=== PATIENT | female | born 1965 | race Caucasian/White ===

== ENCOUNTER 2020-05-14 18:15 | Inpatient (IN) | payer BC, SELFPAY ==
[2020-05-14] VITALS (10 sets, daily range): BP systolic 96–170; BP diastolic 59–93; PULSE 81–94; RESP 18–30; TEMP 36.6–37.2; O2SAT 86–97; BMI 47.4; BMI 48.8; BMI 48.9
--- NOTE | 2020-05-14 18:23 | EKG12_ITS ---
Test Reason : SOB Blood Pressure : / mmHG Vent. Rate : 088 BPM Atrial Rate : 086 BPM P-R Int : 000 ms QRS Dur : 098 ms QT Int : 384 ms P-R-T Axes : 000 -18 054 degrees QTc Int : 464 ms Atrial fibrillation Poor R wave progression Abnormal ECG Confirmed by YAO QUAN, FEDERICO ([id number]), marketing editor MEGAN BAILEY ([id number]) on 05/17/2020 11:09:25 AM Referred By: SHORTY Confirmed By:FEDERICO SAMAYOA MD
--- NOTE | 2020-05-14 18:34 | ED.VIS.GEN ---
History of Present Illness Chief Complaint: Shortness of Breath Narrative: This patient is a 54-year-old female who presents with shortness of breath on exertion. She became ill 3 weeks ago with a URI or sinusitis-like illness of congestion and rhinorrhea. She thought she had sinusitis and had a prescription for azithromycin called in for her. She has had some cough and shortness of breath with exertion. She actually states today is the best she is felt and her symptoms are nearly resolved today unless she walks. Her daughter is a respiratory therapist who checked on her and got an ambulatory pulse ox today and her pulse ox was 88 to 90% with ambulation. No fevers vomiting or diarrhea. The patient's did recently test positive for Covid. Patient denies history of chronic underlying lung disease such as asthma or COPD. Past Medical History - Allergies and Home Meds Allergies/Adverse Reactions: Allergies No Known Allergies Allergy (Verified 05/14/20 18:18) Primary Care Physician: Liang Jimenez MD [NON-STAFF] - Past Medical History: - - Diabetes, hypertension, hyperlipidemia Smoking Status: Never smoker Review of Systems All systems negative except as indicated General: Denies: Fever Eyes: Denies: Visual changes - bilaterally ENT: Reports: Rhinorrhea, - - Congestion, sinus pressure Respiratory: Reports: Dyspnea, Cough Gastrointestinal: Denies: Abdominal pain, Nausea, Vomiting, Diarrhea Musculoskeletal: Denies: Myalgias, Arthralgias Skin: Denies: Rash Neurological: Denies: Headache Allergy: Denies: Uticaria Physical Exam Vital Signs/Narrative: Vital Signs Temp Pulse Resp BP Pulse Ox 05/14/20 18:16 98 F 90 20 H 96/59 L 96 Inital Vital Signs reviewed: Yes General: Well nourished Head: Normocephalic Eyes: EOMI ENT: Moist mucous membranes Neck: Supple Cardiovascular: Regular rate, Regular rhythm Respiratory: No distress, CTA bilaterally Abdomen: Soft, Nontender Skin: Normal color Neurological: Alert Psychological: Normal affect Diagnostic/Tx/Re-eval Impressions Chest X-Ray 05/14/20 18:54 IMPRESSION: Lingular opacity suspicious for pneumonia. Consider typical and atypical etiologies. Mild right hilar adenopathy. CT of the chest is advised for further evaluation. Electronically Signed: Zoila Davenport MD at 19:26 EST Tel , Service support , 05/14/20 18:54 Chest 1 View (Portable) [RAD] Stat 05/14/20 19:30 CT Chest [Chest WITH Contrast] [CT] Stat 05/14/20 18:50 Mucosa - Nose SARS-CoV-2 Antigen (Rapid) - Final Laboratory Results 05/14/20 05/14/20 05/14/20 18:43 18:43 18:43 WBC 4.6 RBC 5.51 H Hgb 13.8 Hct 43.8 MCV 79.5 L MCH 25.0 L MCHC 31.5 L RDW Std Deviation 43.3 RDW Coeff of Nikhil 15.1 H Plt Count 194 MPV 10.4 Immature Gran % (Auto) 0.400 Neut % (Auto) 80.5 H Lymph % (Auto) 12.8 L Oliver % (Auto) 6.1 Eos % (Auto) 0.0 Baso % (Auto) 0.2 Absolute Neuts (auto) 3.7 Absolute Lymphs (auto) 0.59 L Nucleated RBC % 0 Differential Comment SCANNED Platelet Estimate ADEQUATE Microcytosis 1+ Sodium 139 Potassium 3.9 Chloride 105 Carbon Dioxide 29.0 Anion Gap 5 BUN 12 Creatinine 1.15 H Estim Creat Clear Calc 61.05 Est GFR (MDRD) Af Amer 63 Est GFR (MDRD) Non-Af 52 L BUN/Creatinine Ratio 10.4 Glucose 119 H Lactic Acid 1.7 Calcium 8.5 Total Bilirubin 0.70 AST 34 ALT 28 Alkaline Phosphatase 66 Troponin I B-Natriuretic Peptide Total Protein 8.2 Albumin 3.1 L Globulin 5.1 H Albumin/Globulin Ratio 0.6 L 05/14/20 05/14/20 18:43 18:43 WBC RBC Hgb Hct MCV MCH MCHC RDW Std Deviation RDW Coeff of Nikhil Plt Count MPV Immature Gran % (Auto) Neut % (Auto) Lymph % (Auto) Oliver % (Auto) Eos % (Auto) Baso % (Auto) Absolute Neuts (auto) Absolute Lymphs (auto) Nucleated RBC % Differential Comment Platelet Estimate Microcytosis Sodium Potassium Chloride Carbon Dioxide Anion Gap BUN Creatinine Estim Creat Clear Calc Est GFR (MDRD) Af Amer Est GFR (MDRD) Non-Af BUN/Creatinine Ratio Glucose Lactic Acid Calcium Total Bilirubin AST ALT Alkaline Phosphatase Troponin I < 0.015 B-Natriuretic Peptide 23.2 Total Protein Albumin Globulin Albumin/Globulin Ratio - Medical Decision Making Labs as above essentially unremarkable. Testing for COVID-19 is negative. EKG shows atrial fibrillation at a rate of 88. Patient has no known prior history of atrial fibrillation. Chest x-ray shows lingular pneumonia and possibly hilar adenopathy. Radiology recommended CT of the chest. CT of the chest with IV contrast was obtained and is pending at the time of this dictation. Patient the time of my initial history had a pulse ox of 97%. However she desaturated to 87% on room air at rest. She was placed on oxygen via nasal cannula. On my review of the CT imaging there is concern for right-sided pulmonary embolism and patient has bilateral infiltrates very concerning for Covid despite a negative antigen test. We have obtained a Covid PCR which is pending at the time of this dictation. I did speak to the hospitalist who agrees to admit. We will treat with Lovenox for now. Patient was also given IV Levaquin for pneumonia. If she is rate controlled in regards to her atrial fibrillation. ED Disposition - Plan for ED Patient: Disposition: Acute Care [facility] Diagnosis: COVID-19, Atrial fibrillation, Pneumonia, Pulmonary embolism Referrals: Liang Jimenez MD [NON-STAFF] -
--- NOTE | 2020-05-14 18:54 | RAD_ITS ---
STUDY: X-RAY CHEST REASON FOR EXAM: Female, 54 years old. SOB, FAMILY IS COVID + TECHNIQUE: Single AP portable view of the chest. COMPARISON: None. FINDINGS: No pleural effusion. Hazy opacity in the lingula, suspicious for pneumonia. Mild prominence of the right lung hilum. Question adenopathy. Normal size heart. Normal visualized pulmonary arteries. Normal visualized aortic arch and descending thoracic aorta. Normal visualized thoracic spine. Normal visualized ribs, clavicles, and shoulders. There is no demonstrated abnormality of the visualized soft tissue structures of the upper abdomen. RAD/Chest 1 View (Portable) IMPRESSION: Lingular opacity suspicious for pneumonia. Consider typical and atypical etiologies. Mild right hilar adenopathy. CT of the chest is advised for further evaluation. Electronically Signed: Zoila Davenport MD at 19:26 EST Tel , Service support ,
[2020-05-14 19:00] LABS: Absolute Lymphocyte Count 0.59 X10^3/uL (0.83-4.51); Absolute Neutrophil Count 3.7 X10^3/uL (2.0-7.7); Basophil# 0.01 X10^3/uL; Basophil% 0.2 % (0-1); Hematocrit 43.8 % (37-47); Hemoglobin 13.8 g/dL (12.0-15.0); Lymphocyte # 0.59 X10^3/ul (4.0); Lymphocyte % 12.8 % (19-41); Mean Corp Hgb Conc 31.5 g/dL (32-36); Mean Corpuscular Volume 79.5 fL (81-99); Mean Platelet Vol. 10.4 fl (6.2-12.0); Monocyte# 0.28 X10^3/uL; Monocyte% 6.1 % (0-10); NRBC Flagged by Analyzer 0 % (0-5); Neutrophil % 80.5 % (47-70); POSITIVE DIFFERENTIAL YES; Platelet Count 194 K/mm3 (150-450); RBC Distribution Width CV 15.1 % (11.6-14.6); RBC Distribution Width SD 43.3 fl (35.1-43.9); Red Blood Count 5.51 M/mm3 (4.2-5.4); White Blood Count 4.6 K/mm3 (4.4-11.0)
[2020-05-14 19:04] LABS: Differential Indicated SCAN CRITERIA MET
[2020-05-14 19:30] LABS: ALB/GLOB Ratio 0.6 RATIO (0.9-2.4); AST(SGOT) 34 U/L (15-37); Alanine Aminotransfer ALT/SGPT 28 U/L (13-56); Albumin, Serum 3.1 g/dL (3.2-5.0); Alkaline Phosphatase 66 U/L (45-117); Anion Gap 5 (5-15); BUN 12 mg/dL (7-18); BUN/Creat Ratio 10.4 RATIO (10-20); Calcium,Total 8.5 mg/dL (8.5-10.1); Chloride 105 mmol/L (98-107); Creatinine, Serum 1.15 mg/dL (0.55-1.02); EST Glomerular Filtration Rate 52 mL/min (>60); Est Glom Filt Rate - Afr Amer 63 mL/min (>60); Estimated Creatinine Clearance 61.05 ml/min; Globulin 5.1 g/dL (2.2-4.2); Glucose 119 mg/dL (74-106); Potassium 3.9 mmol/L (3.5-5.1); Protein, Total 8.2 g/dL (6.4-8.2); Sodium Level 139 mmol/L (136-145)
--- NOTE | 2020-05-14 19:30 | CT_ITS ---
We are attempting to reach an attending provider to discuss findings. An addendum with communication details will be sent when the communication is complete. STUDY: CT CHEST WITH CONTRAST REASON FOR EXAM: Female, 54 years old. SOB/ABN CXR RADIATION DOSAGE (If Supplied By Facility): CTDIvol = ( 16.72 ) mGy, DLP = ( 766.92 ) mGycm TECHNIQUE: Transaxial imaging was performed following intravenous administration of IV 100mL Isovue-370. Individualized dose optimization techniques were used for this CT. COMPARISON: None. FINDINGS: The heart and pericardium are normal. The aorta is normal in caliber. No aneurysm or dissection. Subsegmental emboli in the right middle and lower lobe. Subsegmental emboli in the right upper lobe. There is moderate mediastinal and bilateral hilar adenopathy, greater than expected for reactive change. Largest right paratracheal node measures 2 x 2.6 cm. Confluent right hilar adenopathy measures up to 4.4 x 2.4 cm. Left hilar adenopathy measures up to 1.6 cm in short axis. Mild prevascular adenopathy. There is no pleural effusion. Moderate groundglass opacity in the lingula and left lower lobe. Mild groundglass opacity in the right upper and right lower lobes. Distribution is predominantly peripheral on the right. Diffuse fatty infiltration of the liver. There is no osseous abnormality. CT/Chest WITH Contrast IMPRESSION: 1. Mild pulmonary emboli, greatest in the right middle and lower lobes. 2. Bilateral groundglass opacities consistent with pneumonia, including possible Covid pneumonia. 3. Moderate mediastinal and bilateral hilar adenopathy, not typical for infectious/reactive adenopathy. Consider underlying malignancy/lymphoma. 4. Hepatic steatosis. Electronically Signed: Zoila Davenport MD at 20:57 EST Tel , Service support ,
[2020-05-14 19:31] LABS: Lactic Acid 1.7 mmol/L (0.4-1.9)
[2020-05-14] MEDS: LORazepam 2 MG/ML Syringe 0.5 MG IV (19:44)
[2020-05-14 19:51] LABS: Differential Comment SCANNED; Platelet Estimate ADEQUATE (ADEQ)
[2020-05-14 19:52] LABS: Microcytosis 1+
[2020-05-14 19:54] LABS: BNP,B-Type NATRIURETIC PEPTIDE 23.2 pg/mL (0-100)
[2020-05-14] MEDS: levoFLOXacin IV 750 MG/150 ML BAG 100 MG IV (20:26)
[2020-05-14] MEDS: Enoxaparin 150 MG/ML Syringe SC (20:55)
--- NOTE | 2020-05-14 21:00 | PCM.HP.STD ---
Problem List (1) COVID-19 Status: Suspected (2) Atrial fibrillation Status: Acute (3) Pneumonia Status: Acute (4) Pulmonary embolism Status: Acute (5) Sinusitis, acute Status: Acute Qualifiers: Sinusitis location: pansinusitis Recurrence: non-recurrent Qualified Code(s): J01.40 - Acute pansinusitis, unspecified (6) Acute hypoxemic respiratory failure Status: Acute History of Present Illness Date of Admission: 05/14/20 Chief Complaint: Shortness of breath. The patient is a 54 year old F with a significant history of hypertension and diabetes mellitus who presents to the emergency department with 2-week history of shortness of breath. Her shortness of breath is at rest and it increases markedly with exertion. In the past 3 weeks patient had had runny nose and a productive cough. Her cough has been productive for clear to greenish sputum. Occasional patient had a pinkish sputum that she thinks contains blood. Her cough is getting more dry. Because Her symptoms persisted patient was diagnosed with sinusitis and started on Z-Alejandro. The last dose of Z-Alejandro is supposed to be taken on 05/15/2020. The day before presentation a Covid test was done on patient's . The Covid test returned positive. Patient's daughter who is a respiratory therapist at our hospital check patient's pulse ox and it was between 86 to 91% depending on whether patient is at rest or ambulating. At emergency department her oxygen saturation was also found to be low. T Past Medical History Medical History: Medical History (Last Reviewed 06/29/19 @ 16:14 by Shikha Castro) Hypertension I10 Allergies No Known Allergies Allergy (Verified 05/14/20 18:18) Home Medications: Ambulatory Orders Medication Instructions Recorded Albuterol Sulfate [Albuterol 1 puff INHALATION PRN PRN 05/14/20 Sulfate HFA] Amlodipine [Norvasc] 5 mg PO DAILY 05/14/20 Hydrochlorothiazide [Hctz] 25 mg PO DAILY 05/14/20 Zithromax Z-Alejandro 05/14/20 metFORMIN HCl [Glucophage] 500 mg PO BIDCM 05/14/20 Surgical History: tonsillectomy Smoking Status: Never smoker Alcohol: Rare - *Family History Maternal History Items: Heart Disease Paternal History Items: Cancer - Lymphoma Review of Systems Constitutional: Reports: Anorexia, Malaise, Fatigue. Denies: Chills, Fever, Weight Change HEENT: Denies: Head Aches, Sinus Congestion, Sinus Drainage Cardiovascular: Denies: Chest Pain, Palpitations Respiratory: Reports: Cough, Shortness of breath at rest, Sputum production Gastrointestinal: Denies: Abdominal Pain, Nausea, Vomiting Genitourinary: Denies: Dysuria Musculoskeletal: Denies: Joint Pain, Joint Tenderness Skin: Denies: Rash, Wounds Neurological: Denies: Numbness, Tingling, Focal weakness Psychiatric: Denies: Anxiety, Depression, Homicidal Ideations, Suicidal Ideations Hematologic/ Lymphatic: Denies: Easy Bruising, Easy Bleeding VTE Information - Inpt Only VTE Present on Admission: Yes VTE Mechan Device Prophylaxis: None VTE Pharm Prophylaxis ordered?: No Patient Problems: Active and Suspected Problems (Last Reviewed 06/29/19 @ 16:14 by Shikha Castro) COVID-19 (Suspected) Atrial fibrillation (Acute) Pneumonia (Acute) Pulmonary embolism (Acute) Acute hypoxemic respiratory failure (Acute) Sinusitis, acute (Acute) - Physical Exam Vitals/I&O's: Vital Signs Temp Pulse Resp BP Pulse Ox 98.9 F 94 30 H 155/93 H 95 05/14/20 20:27 05/14/20 20:27 05/14/20 20:27 05/14/20 20:27 05/14/20 20:27 Oxygen Flow Rate (L/min) 2 Oxygen Delivery Method Nasal Cannula Weight: 154.221 kg Body Mass Index (BMI) 47.4 General: Alert, Oriented x3, Cooperative HEENT: Atraumatic, PERRLA, EOMI, Normocephalic Neck: Supple, No JVD, Negative Carotid Bruits Lungs: No wheeze, Rales Cardiovascular: Normal S1, Normal S2, No murmurs, Irregular Rate Abdomen: Bowel Sounds Present, Soft, Non Tender Extremities: No edema, Capillary Refill Less than 3 Seconds Skin: No rashes, No breakdown Musculoskeletal: No Tenderness to Palpation of Joints or Extremities Neurological: Cranial nerves II-XII grossly intact Psych/Mental Status: Normal Affect, Appropriate Microbiology Past 72 Hours 05/14/20 18:50 Mucosa - Nose SARS-CoV-2 Antigen (Rapid) - Final Laboratory Results 05/14/20 18:43: WBC 4.6, RBC 5.51 H, Hgb 13.8, Hct 43.8, MCV 79.5 L, MCH 25.0 L, MCHC 31.5 L, RDW Std Deviation 43.3, RDW Coeff of Nikhil 15.1 H, Plt Count 194, MPV 10.4, Immature Gran % (Auto) 0.400, Neut % (Auto) 80.5 H, Lymph % (Auto) 12.8 L, Hubbard % (Auto) 6.1, Eos % (Auto) 0.0, Baso % (Auto) 0.2, Absolute Neuts (auto) 3.7, Absolute Lymphs (auto) 0.59 L, Nucleated RBC % 0, Differential Comment SCANNED, Platelet Estimate ADEQUATE, Microcytosis 1+ 05/14/20 18:43: Sodium 139, Potassium 3.9, Chloride 105, Carbon Dioxide 29.0, Anion Gap 5, BUN 12, Creatinine 1.15 H, Estim Creat Clear Calc 61.05, Est GFR (MDRD) Af Amer 63, Est GFR (MDRD) Non-Af 52 L, BUN/Creatinine Ratio 10.4, Glucose 119 H, Calcium 8.5, Total Bilirubin 0.70, AST 34, ALT 28, Alkaline Phosphatase 66, Total Protein 8.2, Albumin 3.1 L, Globulin 5.1 H, Albumin/Globulin Ratio 0.6 L 05/14/20 18:43: Lactic Acid 1.7 05/14/20 18:43: Troponin I < 0.015 05/14/20 18:43: B-Natriuretic Peptide 23.2 05/14/20 20:35: COVID-19 (MAREK) Pending Assessment/Plan All Active Problems (Last Reviewed 06/29/19 @ 16:14 by Shikha Castro) Atrial fibrillation (Acute) Pneumonia (Acute) Pulmonary embolism (Acute) Acute hypoxemic respiratory failure (Acute) Sinusitis, acute (Acute) The patient is a 54 year old F with a significant history of hypertension and diabetes mellitus who presents to the emergency department with 2-week history of shortness of breath and hypoxia and found to have atrial fibrillation; PE and bilateral opacities on chest imaging as well as mediastinal and hilar adenopathy. Acute hypoxemic respiratory insufficiency Likely etiology of pulmonary embolism and COVID-19. Other differential diagnosis include viral pneumonia; and atypical pneumonia. Reportedly her oxygen saturation was 86% on room air at the emergency department. Patient required nasal cannula oxygen at emergency department. Oxygen supplementation continued. Coronavirus antigen test was negative. Covid PCR also returned to be negative. Impression of chest x-ray by radiologist: Lingular opacity suspicious for pneumonia. Consider typical and atypical etiologies. Mild right hilar adenopathy. Actual chest x-ray image was independently interpreted. I agree radiologist interpretation. Impression of chest CT by radiologist: Mild pulmonary emboli, greatest in the right middle and lower lobes. Bilateral groundglass opacity consistent with pneumonia, including possible Covid pneumonia. Moderate mediastinal and bilateral hilar adenopathy, not typical for infectious/reactive adenopathy. Consider underlying malignancy/lymphoma. Hepatic steatosis. Although both antigen and PCR for Covid was negative patient is a high risk of SARS COV -2 we will treat with dexamethasone and remdesivir. We will consult ID and pulmonary medicine. Her liver enzyme is normal. Discussed adverse effects of medication with patient. Procalcitonin; ferritin; triglycerides; strep pneumonia antigen; Legionella urinary antigen; respiratory pathogen panel ordered. Received Levaquin IV at emergency department. Will start patient on ceftriaxone IV. Levaquin IV ordered. Tylenol as needed for fever. Patient currently has no fever. Mucinex ordered Pulmonary embolism Placed on therapeutic dose of Lovenox Echocardiogram ordered. Atrial fibrillation. Patient with A. fib and normal ventricular response. Placed on telemetry. Echocardiogram ordered. Anticoagulation as above Mediastinal and bilateral hilar adenopathy Per CT; and per radiologist, not typical for infectious/reactive adenopathy Pulmonary medicine consult. Acute sinusitis Flonase ordered. Received Levaquin in the emergency department. Was on home Z-Alejandro with last dose on 05/15/2020. Antibiotics as above. Hypertension Blood pressure is not within goal Amlodipine and hydrochlorothiazide continued Trend blood pressure and adjust blood pressure medications. Diabetes mellitus Patient with mild hyperglycemia on presentation Metformin held. Anticipate with Decadron blood glucose before elevated. Accu-Chek QA CHS with correction scale insulin ordered. Morbid obesity BMI: 47.4. Complicates care. Lifestyle modification recommended. DVT prophylaxis: Not indicated since patient has acute PE. Lovenox as above. Inpatient E&M: 21599 Init Hosp L3
--- NOTE | 2020-05-14 21:58 | ECHOCS_ITS ---
Reason For Study: Afib/Flutter Procedure This was a 2D Doppler, Color Flow transthoracic echocardiogram. Technically difficult study due to patient body habitus. Patient refused to lay supine or on her left side. When told it would affect image quality she said ok. Patient was then scanned sitting upright in the bed. Contrast injection given. The study was technically difficult. Contrast injection was performed. Exam performed portable in patient room. The exam was abbreviated due to the COVID 19 protocol. Left Ventricle Mild concentric left ventricular hypertrophy. Based upon the 2D echocardiographic and contrast enhanced images obtained there appears to be grossly normal left ventricular size, wall motion, and systolic function. The estimated ejection fraction is 70 %. Unable to assess diastolic dysfunction. Right Ventricle Based upon the 2D echocardiographic and contrast enhanced images obtained there appears to be grossly normal right ventricular size and systolic function. Atria Normal left atrium. Normal right atrium. No doppler evidence for ASD. Mitral Valve There is no mitral annular calcification. Normal mitral valve. Tricuspid Valve The tricuspid valve is not well visualized. Aortic Valve Trisinus/trileaflet aortic valve. Normal aortic valve. Pulmonic Valve The pulmonic valve is not well visualized. Great Vessels The aortic root is not well visualized. Pericardium/Pleural No pericardial effusion. Medication Diluted definity 3ml given slow IV push to enhance endocardial definition. MMode/2D Measurements & Calculations LVIDd: 4.3 cm IVSd: 1.4 cm LVIDs: 2.7 cm LVPWd: 1.3 cm FS: 37.3 % Interpretation Summary The study was technically difficult. Contrast injection was performed. Based upon the 2D echocardiographic and contrast enhanced images obtained there appears to be grossly normal left ventricular size, wall motion, and systolic function. The estimated ejection fraction is 70 %. Mild concentric left ventricular hypertrophy. Unable to assess diastolic dysfunction. Ordering Physician: Deshawn Brady Referring Physician: Sanket Gay Performed By: Brodwolf, Sharath, RCS
--- NOTE | 2020-05-14 22:00 | PCS.PANDOC ---
PANDEMIC DOCUMENTATION INITIATED: Date: 05/14/20 Time: 22:00
--- NOTE | 2020-05-14 22:38 | NURSING ---
Update called to Ana Laura Carey (pt.'s daughter) at this time.
[2020-05-14 23:21] LABS: Procalcitonin 0.11 ng/mL (0.00-0.09)
[2020-05-15] VITALS (11 sets, daily range): BP systolic 140–146; BP diastolic 79–87; PULSE 58–85; RESP 16–32; TEMP 36.5–36.6; O2SAT 94–95
[2020-05-15] MEDS: guaiFENesin 1,200 MG Tablet 1200 MG PO ×3 (00:26→21:11)
[2020-05-15] MEDS: hydroCHLOROthiazide 25 MG Tablet PO ×3 (00:26→21:11)
[2020-05-15 00:27] LABS: Ferritin 234 ng/mL (8-252); Triglycerides 158 mg/dL
[2020-05-15] MEDS: Fluticasone 0.05% 1 SPRAY NASAL.SRY NASAL ×3 (00:27→21:07)
[2020-05-15] MEDS: dexAMETHasone 4 MG Tablet 6 MG PO ×2 (00:28→08:51)
[2020-05-15 01:11] LABS: Bedside Glucose 117 mg/dL (70-110)
[2020-05-15 06:04] LABS: Absolute Neutrophil Count 3.6 X10^3/uL (2.0-7.7); Basophil# 0.01 X10^3/uL; Basophil% 0.2 % (0-1); Hematocrit 44.6 % (37-47); Hemoglobin 13.8 g/dL (12.0-15.0); Lymphocyte % 11.7 % (19-41); Mean Corp Hgb Conc 30.9 g/dL (32-36); Mean Corpuscular Hgb 24.3 pg (27.0-32.0); Mean Corpuscular Volume 78.5 fL (81-99); Mean Platelet Vol. 10.4 fl (6.2-12.0); Monocyte# 0.16 X10^3/uL; Monocyte% 3.7 % (0-10); NRBC Flagged by Analyzer 0 % (0-5); Neutrophil % 84.2 % (47-70); POSITIVE DIFFERENTIAL YES; Platelet Count 190 K/mm3 (150-450); RBC Distribution Width CV 14.9 % (11.6-14.6); Red Blood Count 5.68 M/mm3 (4.2-5.4); White Blood Count 4.3 K/mm3 (4.4-11.0)
[2020-05-15 06:11] LABS: Differential Indicated SCAN CRITERIA MET
[2020-05-15 06:42] LABS: ALB/GLOB Ratio 0.6 RATIO (0.9-2.4); AST(SGOT) 25 U/L (15-37); Alanine Aminotransfer ALT/SGPT 24 U/L (13-56); Albumin, Serum 3.1 g/dL (3.2-5.0); Alkaline Phosphatase 68 U/L (45-117); Anion Gap 9 (5-15); BUN 10 mg/dL (7-18); BUN/Creat Ratio 8.6 RATIO (10-20); Calcium,Total 8.9 mg/dL (8.5-10.1); Chloride 102 mmol/L (98-107); Creatinine, Serum 1.16 mg/dL (0.55-1.02); EST Glomerular Filtration Rate 51 mL/min (>60); Est Glom Filt Rate - Afr Amer 62 mL/min (>60); Estimated Creatinine Clearance 59.81 ml/min; Globulin 5.4 g/dL (2.2-4.2); Glucose 143 mg/dL (74-106); Potassium 3.7 mmol/L (3.5-5.1); Protein, Total 8.5 g/dL (6.4-8.2); Sodium Level 135 mmol/L (136-145); Thyroid Stim Hormone (TSH) 2.28 uIU/mL (0.358-3.74)
[2020-05-15] MEDS: Insulin Lispro 100 UNIT/ML INSULN.PEN SC ×3 (06:51→21:21)
[2020-05-15 07:16] LABS: Bedside Glucose 159 mg/dL (70-110)
[2020-05-15] MEDS: amLODIPine 5 MG Tablet PO (08:52)
[2020-05-15] MEDS: Enoxaparin 150 MG/ML Syringe SC ×2 (09:00→21:10)
--- NOTE | 2020-05-15 09:30 | CASEMGMT ---
NAMRATA PENA assessment: Phone interview with patient for initial transition planning/care coordination assessment. RN JEAN introduced self and role at [facility], pt voices understanding and consents to assessment at this time. Pt is A/Ox4 at this time and answers all questions appropriately at this time. Pt is currently on 4L nc at this time. Pt is not SOB with conversation and is able to speak in full sentences. Care providers, pharmacy, and demographics verified at this time. Presentation: Pt w/ SOB. Family is COVID +, pt states sick for 3 weeks. RA sat is 96% but drops w/ ambulation. Admitting dx: SARS COVID, PE, Afib PCP: Sanket Gay Specialists: Pt states no current specialists. Preferred Pharmacy: [facility] Insurance: [employer] Prescription Benefit: [employer] Living Will/HPOA: Pt states has LW/HPOA and is aware that they are not on file at [facility] at this time. Pt states her and daughter are HPOA's. LNOK: Anmol Preston, ; Yasmin Carey, daughter Living Arrangements: Pt states lives with in 1 story home and states no concerns at home at this time. Pt states is independent with ADL's. Transportation: Pt states drives self and states no transportation concerns at this time. DME/HHC: Pt states no current DME or need for any at this time. Pt states no preference for DME if qualifies at discharge. Pt states no hx of HHC or SNF in the past. Pt states no concerns with going home at time of discharge. 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 Pt states does not smoke cigarettes and does drink ETOH occasionally. Pt states no further concerns/needs at this time. CM to follow for anti-coagulant, home oxygen qualification, and any further discharge planning/needs. Advised pt to ask for CM if any further questions/concerns/needs arise, voices understanding. Pt Goal: Home Plan: Home, pending home oxygen qualification. [place] NAMRATA PENA
[2020-05-15 09:59] LABS: M R Staph aureus DNA By PCR Negative (Negative); Probe Check PASS; Specimen Processing Control PASS
[2020-05-15 12:55] LABS: Bedside Glucose 149 mg/dL (70-110)
--- NOTE | 2020-05-15 14:47 | PN_ITS ---
Patient Problems: Active and Suspected Problems (Last Reviewed 06/29/19 @ 16:14 by Shikha Castro) COVID-19 (Suspected) Atrial fibrillation (Acute) Pneumonia (Acute) Pulmonary embolism (Acute) Acute hypoxemic respiratory failure (Acute) Sinusitis, acute (Acute) Subjective: Feeling better today. Per daughter has been having SOB for a while even before respiratory sx started. Vitals/I&O's: Vital Signs Temp Pulse Resp BP Pulse Ox 97.8 F 85 18 146/82 H 94 05/15/20 08:46 05/15/20 08:46 05/15/20 08:46 05/15/20 08:46 05/15/20 08:46 Oxygen Flow Rate (L/min) 4 Oxygen Delivery Method Nasal Cannula Weight: 158.893 kg Body Mass Index (BMI) 48.8 Intake and Output for Last 24 Hours 05/13/20 05/14/20 05/15/20 23:59 23:59 23:59 Intake Total 150 / 150 522 / 522 Output Total 600 / 600 Balance 150 / 150 -78 / -78 General: Alert, Oriented x3, Cooperative, No apparent distress, Well developed, Well nourished, - - MO WF sitting up in a chair working on her computer HEENT: Atraumatic, PERRLA, EOMI, Normocephalic, Sluggish Pupils Oral: Moist Mucosa, No Gingival or Mucosal Lesions/ Ulcerations, - - Mallampati 3-4 Neck: Supple, No JVD, Negative Hepatojugular Reflux, Trachea Midline, Thyroid Normal Size and Texture Lungs: No wheeze, No rales, Diminished Cardiovascular: Regular rate, Regular Rhythm, Normal S1, Normal S2, No murmurs, No Ectopic Activity, No rub noted Abdomen: Bowel Sounds Present, Soft, Non Tender, Non-Distended, No Hepato- splenomegaly, Obese Extremities: No clubbing, No cyanosis, Edema - trace B LE-chronic per pt Skin: No rashes, No breakdown Musculoskeletal: No Tenderness to Palpation of Joints or Extremities, No Muscle Wasting Lymphatic: No Cervical, Supraclavicular, or Inguinal Adenopathy Neurological: Cranial nerves II-XII grossly intact, Neuro grossly intact, Muscle tone normal, Coordination normal Psych/Mental Status: Normal Affect, Appropriate, - - very pleasant Microbiology Past 72 Hours 05/15/20 05:45 Mucosa - Nasopharyngeal Respiratory Panel (PCR) - Final 05/15/20 01:45 Urine, Clean Catch Legionella Antigen - Final 05/15/20 01:45 Urine, Clean Catch Streptococcus pneumoniae Antigen (M - Final 05/14/20 18:50 Mucosa - Nose SARS-CoV-2 Antigen (Rapid) - Final Laboratory Results 05/14/20 18:43: WBC 4.6, RBC 5.51 H, Hgb 13.8, Hct 43.8, MCV 79.5 L, MCH 25.0 L, MCHC 31.5 L, RDW Std Deviation 43.3, RDW Coeff of Nikhil 15.1 H, Plt Count 194, MPV 10.4, Immature Gran % (Auto) 0.400, Neut % (Auto) 80.5 H, Lymph % (Auto) 12.8 L, [place] % (Auto) 6.1, Eos % (Auto) 0.0, Baso % (Auto) 0.2, Absolute Neuts (auto) 3.7, Absolute Lymphs (auto) 0.59 L, Nucleated RBC % 0, Differential Comment SCANNED, Platelet Estimate ADEQUATE, Microcytosis 1+ 05/14/20 18:43: Sodium 139, Potassium 3.9, Chloride 105, Carbon Dioxide 29.0, Anion Gap 5, BUN 12, Creatinine 1.15 H, Estim Creat Clear Calc 61.05, Est GFR (MDRD) Af Amer 63, Est GFR (MDRD) Non-Af 52 L, BUN/Creatinine Ratio 10.4, Glucose 119 H, Calcium 8.5, Total Bilirubin 0.70, AST 34, ALT 28, Alkaline Phosphatase 66, Total Protein 8.2, Albumin 3.1 L, Globulin 5.1 H, Albumin/Globulin Ratio 0.6 L 05/14/20 18:43: Lactic Acid 1.7 05/14/20 18:43: Troponin I < 0.015 05/14/20 18:43: B-Natriuretic Peptide 23.2 05/14/20 18:43: Ferritin 234, Triglycerides 158 05/14/20 20:35: COVID-19 ([facility]) Not Detected 05/14/20 22:38: Procalcitonin 0.11 H 05/15/20 00:44: POC Glucose 117 H 05/15/20 05:50: WBC 4.3 L, RBC 5.68 H, Hgb 13.8, Hct 44.6, MCV 78.5 L, MCH 24.3 L, MCHC 30.9 L, RDW Std Deviation 43.0, RDW Coeff of Nikhil 14.9 H, Plt Count 190, MPV 10.4, Immature Gran % (Auto) 0.200, Neut % (Auto) 84.2 H, Lymph % (Auto) 11.7 L, [place] % (Auto) 3.7, Eos % (Auto) 0.0, Baso % (Auto) 0.2, Absolute Neuts (auto) 3.6, Absolute Lymphs (auto) 0.50 L, Nucleated RBC % 0, Diff Path Review September05/15/20 05:50: Sodium 135 L, Potassium 3.7, Chloride 102, Carbon Dioxide 24.0, Anion Gap 9, BUN 10, Creatinine 1.16 H, Estim Creat Clear Calc 59.81, Est GFR (M DRD) Af Amer 62, Est GFR (MDRD) Non-Af 51 L, BUN/Creatinine Ratio 8.6 L, Glucose 143 H, Calcium 8.9, Total Bilirubin 0.50, AST 25, ALT 24, Alkaline Phosphatase 68, Total Protein 8.5 H, Albumin 3.1 L, Globulin 5.4 H, Albumin/Globulin Ratio 0.6 L, TSH 2.28 05/15/20 06:43: POC Glucose 159 H 05/15/20 06:50: MRSA (PCR) Negative 05/15/20 11:37: POC Glucose 149 H Current Medications Acetaminophen (Acetaminophen 325 Mg Tablet) 650 mg PO Q6H PRN PRN PRN Reason: Pain Score 1-10/Temp > 100.7 F Albuterol Sulfate (Albuterol Ih 8.5 Gm (Proair) Inhaler (200 Puffs)) 2 puff INHALATION Q4H PRN PRN PRN Reason: SOB/WHEEZING Last Admin: 05/15/20 00:26 Dose: 2 puff Documented by: Amlodipine Besylate (Amlodipine 5 Mg Tablet) 5 mg PO DAILY [facility] Last Admin: 05/15/20 08:52 Dose: 5 mg Documented by: Dexamethasone (Dexamethasone 4 Mg Tablet) 6 mg PO DAILY [facility] Last Admin: 05/15/20 08:51 Dose: 6 mg Documented by: Dextrose (Dextrose 50%-Water 25 Gm/50 Ml Disp.Syrin) 0 gm IV X1 PRN; Protocol PRN Reason: Hypoglycemia Enoxaparin Sodium (Enoxaparin 150 Mg/Ml Syringe) 150 mg SC Q12 [facility] Last Admin: 05/15/20 09:00 Dose: 150 mg Documented by: Fluticasone Propionate (Fluticasone 0.05% 1 [place] Nasal.Sry) 1 spray NASAL BID [facility] Last Admin: 05/15/20 08:51 Dose: 1 spray Documented by: Glucagon (Glucagon 1 Mg/Ml Syringe) 1 mg IM .X1 PRN PRN Reason: Hypoglycemia Guaifenesin (Guaifenesin 1,200 Mg Tablet) 1,200 mg PO BID [facility] Last Admin: 05/15/20 08:52 Dose: 1,200 mg Documented by: Hydrochlorothiazide (Hydrochlorothiazide 25 Mg Tablet) 25 mg PO BID [facility] Last Admin: 05/15/20 08:52 Dose: 25 mg Documented by: Remdesivir 100 mg/ Sodium (Chloride) 250 mls @ 125 mls/hr IV DAILY@2200 [facility] Stop: 05/18/20 23:59 Insulin Human Lispro (Insulin Lispro 100 Unit/Ml Insuln.Pen) 0 unit SC ACHS [facility]; Protocol Last Admin: 05/15/20 11:38 Dose: Not Given Documented by: Melatonin (Melatonin 3 Mg Tablet) 3 mg PO QHS PRN PRN PRN Reason: INSOMNIA Ondansetron HCl (Ondansetron 4 Mg/2 Ml Vial) 4 mg IV Q8H PRN PRN PRN Reason: NAUSEA/VOMITING Ondansetron HCl (Ondansetron 4 Mg/2 Ml Vial) 4 mg IV Q8H PRN PRN PRN Reason: Nausea Senna/Docusate Sodium (Senna/Docusate Sodium 1 Tablet) 2 tablet PO BID PRN PRN PRN Reason: Constipation Sodium Chloride (0.9% Saline Lock 10 Ml Syringe) 10 - 40 ml IV UD PRN PRN Reason: SALINE FLUSH Throat Lozenges (Benzocaine/Menthol 1 Lozenge) 1 lozenge MUCOUS MEM Q2H PRN PRN PRN Reason: SORE THROAT Medical Necessity - Tobacco Use Smoking Status: Never smoker Tobacco Use: Non-smoker Assessment/Plan All Active Problems (Last Reviewed 02/04/20 @ 16:14 by Shikha Tidwell Atrial fibrillation (Acute) Pneumonia (Acute) Pulmonary embolism (Acute) Acute hypoxemic respiratory failure (Acute) Sinusitis, acute (Acute) Acute Hypoxic Respiratory Failure 2/2 PE/+- COVID PNA -Rapid and PCR for COVID both neg but just + so started on Decadron and Remdesivir -await ID/Pulm input -CT findings are c/w COVID with ground glass changes but pt also has other reasons for hypoxia with PE -Continue Lovenox -On supplemental O2 at 4 L with SpO2 94% -wean as able -doubt bacterial--> stop ABX -Viral PCR neg -Urine antigens neg -pt afebrile PE -Lovenox -will start coumadin if no bx soon for LAD required -RV not mentioned on CTA -ECHO pending -no troponin elevation so suspect RV will be ok New Atrial Fibrillation -suspect related to PE -ECHO pending -trops negative -BMP WNL ? CKD stage 3 -trend sCr for baseline Mediastinal LAD -check LDH -will need to consider bx but await pulm input HTN -continue home meds Hyponatremia -mild -monitor with pt on HCTZ -was not present on admission MO -? ANJU -recommend wgt loss DVT -therapeutic Lovenox for PE and PAF Code Status -Full Inpatient E&M: 22913 Subs Hosp L3
[2020-05-15 15:24] LABS: Pathologist Review Reviewed
--- NOTE | 2020-05-15 16:04 | CON.PCM_ITS ---
Problem List (1) COVID-19 Status: Suspected Reason for Consult: covid Consulted by: Dr. Ba History of Present Illness: The patient is a 55 year old F with about 4 weeks of cough, dyspnea, weakness, fatigue. No change in taste or smell. Some congestion, no n/v/d. Has had a lot of covid at home. Thinks she got her sick and he is now covid (+). Sx continued. No chest pain, no sputum. Came to ED, had large PE on CT. Admitted on remdesivir, dex, and full dose lovenox. Also on ceftriaxone/levaquin. Full ROS performed and neg except as noted above - Medical History Surgical History: reviewed Allergies/Adverse Reactions: Allergies pollen extracts Allergy (Mild, Verified 05/14/20 22:08) Shortness of breath Home Medications: Ambulatory Orders Medication Instructions Recorded Albuterol Sulfate [Albuterol 1 puff INHALATION PRN PRN 05/14/20 Sulfate HFA] Amlodipine [Norvasc] 5 mg PO DAILY 05/14/20 Hydrochlorothiazide [Hctz] 25 mg PO DAILY 05/14/20 Zithromax Z-Alejandro 05/14/20 metFORMIN HCl [Glucophage] 500 mg PO BIDCM 05/14/20 - Social History Tobacco Use: non-smoker Vital Signs Temp Pulse Resp BP Pulse Ox 97.7 F L 84 16 141/79 H 95 05/15/20 14:58 05/15/20 14:58 05/15/20 14:58 05/15/20 14:58 05/15/20 14:58 Oxygen Flow Rate (L/min) 3 Oxygen Delivery Method Nasal Cannula Weight: 158.893 kg Body Mass Index (BMI) 48.8 Microbiology Past 72 Hours 05/15/20 05:45 Respiratory Panel (PCR) - Final Mucosa - Nasopharyngeal 05/15/20 01:45 Legionella Antigen - Final Urine, Clean Catch Streptococcus pneumoniae Antigen (M - Final 05/14/20 18:50 SARS-CoV-2 Antigen (Rapid) - Final Mucosa - Nose Laboratory Tests Past 24 Hrs 05/14/20 05/14/20 05/14/20 18:43 18:43 18:43 WBC 4.6 RBC 5.51 H Hgb 13.8 Hct 43.8 MCV 79.5 L MCH 25.0 L MCHC 31.5 L RDW Std Deviation 43.3 RDW Coeff of Nikhil 15.1 H Plt Count 194 MPV 10.4 Immature Gran % (Auto) 0.400 Neut % (Auto) 80.5 H Lymph % (Auto) 12.8 L [place] % (Auto) 6.1 Eos % (Auto) 0.0 Baso % (Auto) 0.2 Absolute Neuts (auto) 3.7 Absolute Lymphs (auto) 0.59 L Nucleated RBC % 0 Differential Comment SCANNED Diff Path Review Platelet Estimate ADEQUATE Microcytosis 1+ PT INR Sodium 139 Potassium 3.9 Chloride 105 Carbon Dioxide 29.0 Anion Gap 5 BUN 12 Creatinine 1.15 H Estim Creat Clear Calc 61.05 Est GFR (MDRD) Af Amer 63 Est GFR (MDRD) Non-Af 52 L BUN/Creatinine Ratio 10.4 Glucose 119 H Lactic Acid 1.7 Calcium 8.5 Ferritin Total Bilirubin 0.70 AST 34 ALT 28 Alkaline Phosphatase 66 Troponin I B-Natriuretic Peptide Total Protein 8.2 Albumin 3.1 L Globulin 5.1 H Albumin/Globulin Ratio 0.6 L Triglycerides Procalcitonin TSH COVID-19 ([facility]) MRSA (PCR) 05/14/20 05/14/20 05/14/20 18:43 18:43 18:43 WBC RBC Hgb Hct MCV MCH MCHC RDW Std Deviation RDW Coeff of Nikhil Plt Count MPV Immature Gran % (Auto) Neut % (Auto) Lymph % (Auto) [place] % (Auto) Eos % (Auto) Baso % (Auto) Absolute Neuts (auto) Absolute Lymphs (auto) Nucleated RBC % Differential Comment Diff Path Review Platelet Estimate Microcytosis PT INR Sodium Potassium Chloride Carbon Dioxide Anion Gap BUN Creatinine Estim Creat Clear Calc Est GFR (MDRD) Af Amer Est GFR (MDRD) Non-Af BUN/Creatinine Ratio Glucose Lactic Acid Calcium Ferritin 234 Total Bilirubin AST ALT Alkaline Phosphatase Troponin I < 0.015 B-Natriuretic Peptide 23.2 Total Protein Albumin Globulin Albumin/Globulin Ratio Triglycerides 158 Procalcitonin TSH COVID-19 ([facility]) MRSA (PCR) 05/14/20 05/14/20 05/15/20 20:35 22:38 05:50 WBC 4.3 L RBC 5.68 H Hgb 13.8 Hct 44.6 MCV 78.5 L MCH 24.3 L MCHC 30.9 L RDW Std Deviation 43.0 RDW Coeff of Nikhil 14.9 H Plt Count 190 MPV 10.4 Immature Gran % (Auto) 0.200 Neut % (Auto) 84.2 H Lymph % (Auto) 11.7 L [place] % (Auto) 3.7 Eos % (Auto) 0.0 Baso % (Auto) 0.2 Absolute Neuts (auto) 3.6 Absolute Lymphs (auto) 0.50 L Nucleated RBC % 0 Differential Comment Diff Path Review Reviewed Platelet Estimate Microcytosis PT INR Sodium Potassium Chloride Carbon Dioxide Anion Gap BUN Creatinine Estim Creat Clear Calc Est GFR (MDRD) Af Amer Est GFR (MDRD) Non-Af BUN/Creatinine Ratio Glucose Lactic Acid Calcium Ferritin Total Bilirubin AST ALT Alkaline Phosphatase Troponin I B-Natriuretic Peptide Total Protein Albumin Globulin Albumin/Globulin Ratio Triglycerides Procalcitonin 0.11 H TSH COVID-19 ([facility]) Not Detected MRSA (PCR) 05/15/20 05/15/20 05/15/20 05:50 06:50 15:45 WBC RBC Hgb Hct MCV MCH MCHC RDW Std Deviation RDW Coeff of Nikhil Plt Count MPV Immature Gran % (Auto) Neut % (Auto) Lymph % (Auto) [place] % (Auto) Eos % (Auto) Baso % (Auto) Absolute Neuts (auto) Absolute Lymphs (auto) Nucleated RBC % Differential Comment Diff Path Review Platelet Estimate Microcytosis PT Pending INR Pending Sodium 135 L Potassium 3.7 Chloride 102 Carbon Dioxide 24.0 Anion Gap 9 BUN 10 Creatinine 1.16 H Estim Creat Clear Calc 59.81 Est GFR (MDRD) Af Amer 62 Est GFR (MDRD) Non-Af 51 L BUN/Creatinine Ratio 8.6 L Glucose 143 H Lactic Acid Calcium 8.9 Ferritin Total Bilirubin 0.50 AST 25 ALT 24 Alkaline Phosphatase 68 Troponin I B-Natriuretic Peptide Total Protein 8.5 H Albumin 3.1 L Globulin 5.4 H Albumin/Globulin Ratio 0.6 L Triglycerides Procalcitonin TSH 2.28 COVID-19 ([facility]) MRSA (PCR) Negative - Other Studies Radiology: [] reviewed Other Studies: [] Route of nutrition/ use of supplements: [] Nutritional Intake: [] IV Site: [] Mckeon Catheter: [] - Physical Exam General: Alert, Oriented x3, Cooperative, No apparent distress HEENT: Atraumatic, PERRLA, EOMI Neck: Supple, No Nodes Lungs: Clear to auscultation, Diminished Cardiovascular: Regular rate, Regular Rhythm Abdomen: Soft, Non Tender, Non-Distended Extremities: No edema Skin: No rashes IV Site: Peripheral, without redness Musculoskeletal: No Tenderness to Palpation of Joints or Extremities Neurological: Cranial nerves II-XII grossly intact - Assessment/Plan Antibiotics: [] Assessment/Plan: [] Active and Suspected Problems (Last Reviewed 06/29/19 @ 16:14 by Shikha Castro) COVID-19 (Suspected) Atrial fibrillation (Acute) Pneumonia (Acute) Pulmonary embolism (Acute) Acute hypoxemic respiratory failure (Acute) Sinusitis, acute (Acute) suspected covid with PE, lymphopenia, strong exposure history - covid pcr and Ag neg. Will check serology. On therapeutic lovenox, dex, remdesivir. Will stop levaquin/ceftriaxone. No sign of bacterial infection. Will follow, thank you, d/w Dr. Son
--- NOTE | 2020-05-15 16:10 | PCM.CONS.PUL ---
Problem List (1) COVID-19 Status: Suspected (2) Atrial fibrillation Status: Acute (3) Pulmonary embolism Status: Acute (4) Sinusitis, acute Status: Acute Qualifiers: Sinusitis location: pansinusitis Recurrence: non-recurrent Qualified Code(s): J01.40 - Acute pansinusitis, unspecified Reason for Consult Date of Consultation: 05/15/20 Reason for Consultation: Hypoxia History of Present Illness: The patient is a 55 year old F, with past medical history listed below, who presented to [facility] on 05/14/2020 secondary to progressive shortness of breath. Patient reportedly became ill approximately 3 weeks ago with a URI/sinusitis type illness. Patient had reported congestion rhinorrhea at that time, but no loss of taste or smell. Patient was given a prescription for azithromycin with some improvement. Patient continues to have cough and some shortness of breath on exertion. Patient had felt improved on the day of presentation, but her daughter had checked her respiratory status and noted that she was 88 to 90% with ambulation on room air. Patient's recently did test positive for Covid, but patient denied any underlying history of lung disease such as COPD or asthma. Patient has never been a smoker. In the ER, patient was noted to be borderline hypotensive at 96/59 with a saturation of 96% on supplemental oxygen. Chest x-ray showed a possible lingular infiltrate and some right hilar adenopathy. This was followed up with a CT scan of the chest showing a large PE and scattered groundglass opacities. Patient did have significant mediastinal lymphadenopathy. Laboratory work-up showed no significant leukocytosis and slightly elevated creatinine of 1.15. Bicarbonate was also elevated at 29, but LFTs were within normal limits. BMP was within normal limits. Testing for COVID-19 was negative. Patient was placed on Lovenox, Levaquin and admitted to the PCU for further evaluation. Since being admitted to the hospital, patient feels subjectively improved. Patient's oxygenation has also improved somewhat. Patient denies any hemoptysis, melena or hematochezia. Patient has not required supplemental oxygen previously. Patient does state that she has been told that she should be tested for sleep apnea, but is never completed the testing required to initiate therapy. Patient does report that she snores at night routinely. Patient is unaware of any apneas. Patient does not recall any history of previous PEs or DVTs. Review of systems otherwise negative from a constitutional, HEENT, respiratory, cardiovascular, GI, genitourinary, musculoskeletal, skin, neurologic, psychiatric and hematologic system unless stated above. Past Medical History Medical History: Medical History (Last Reviewed 06/29/19 @ 16:14 by Shikha Castro) Hypertension I10 Allergies pollen extracts Allergy (Mild, Verified 05/14/20 22:08) Shortness of breath Home Medications: Ambulatory Orders Medication Instructions Recorded Albuterol Sulfate [Albuterol 1 puff INHALATION PRN PRN 05/14/20 Sulfate HFA] Amlodipine [Norvasc] 5 mg PO DAILY 05/14/20 Hydrochlorothiazide [Hctz] 25 mg PO DAILY 05/14/20 Zithromax Z-Alejandro 05/14/20 metFORMIN HCl [Glucophage] 500 mg PO BIDCM 05/14/20 Surgical History: tonsillectomy Smoking Status: Never smoker Tobacco Use: Non-smoker Alcohol: Rare - *Family History Maternal History Items: Heart Disease Paternal History Items: Cancer - Lymphoma Review of Systems Comment: See HPI Patient Problems: Active and Suspected Problems (Last Reviewed 06/29/19 @ 16:14 by Shikha Castro) COVID-19 (Suspected) Atrial fibrillation (Acute) Pneumonia (Acute) Pulmonary embolism (Acute) Acute hypoxemic respiratory failure (Acute) Sinusitis, acute (Acute) Objective: All imaging was personally reviewed. Agree with formal interpretation. Patient has not had a previous pulmonary function test or CT for comparison. No sleep study is noted. - Physical Exam Vitals/I&O's: Vital Signs Temp Pulse Resp BP Pulse Ox 36.5 C L 84 16 141/79 H 95 05/15/20 14:58 05/15/20 14:58 05/15/20 14:58 05/15/20 14:58 05/15/20 14:58 Oxygen Flow Rate (L/min) 3 Oxygen Delivery Method Nasal Cannula Weight: 158.893 kg Body Mass Index (BMI) 48.8 Intake and Output for Last 24 Hours 05/13/20 05/14/20 05/15/20 23:59 23:59 23:59 Intake Total 150 / 150 522 / 522 Output Total 600 / 600 Balance 150 / 150 -78 / -78 General: Alert, Oriented x3, Cooperative, No apparent distress, Well developed, Well nourished, - - Morbidly obese. Speaking in full sentences. HEENT: Atraumatic, PERRLA, EOMI, Normocephalic, - - No scleral icterus or injection noted. No epistaxis noted. Oral: Moist Mucosa, No Gingival or Mucosal Lesions/ Ulcerations, - - Mallampati 4 Neck: Supple, No JVD, No Nodes, Trachea Midline Lungs: Clear to auscultation, Normal air movement, No rhonchi, No wheeze, No rales, - - Symmetric expansion. No dullness to percussion. Cardiovascular: Normal S1, Normal S2, No murmurs, Irregular Rate, No rub noted, No Gallop Abdomen: Bowel Sounds Present, Soft, Non Tender, Non-Distended, Obese Extremities: No clubbing, No cyanosis, Edema - Trace lower extremity Skin: No rashes, No breakdown Musculoskeletal: No Tenderness to Palpation of Joints or Extremities Lymphatic: No Cervical, Supraclavicular, or Inguinal Adenopathy Neurological: Cranial nerves II-XII grossly intact, Neuro grossly intact, Motor Exam 5/5 strength throughout Psych/Mental Status: Alert and oriented to time, place, person, mood and affect Microbiology Past 72 Hours 05/15/20 05:45 Mucosa - Nasopharyngeal Respiratory Panel (PCR) - Final 05/15/20 01:45 Urine, Clean Catch Legionella Antigen - Final 05/15/20 01:45 Urine, Clean Catch Streptococcus pneumoniae Antigen (M - Final 05/14/20 18:50 Mucosa - Nose SARS-CoV-2 Antigen (Rapid) - Final Laboratory Results 05/14/20 18:43: WBC 4.6, RBC 5.51 H, Hgb 13.8, Hct 43.8, MCV 79.5 L, MCH 25.0 L, MCHC 31.5 L, RDW Std Deviation 43.3, RDW Coeff of Nikhil 15.1 H, Plt Count 194, MPV 10.4, Immature Gran % (Auto) 0.400, Neut % (Auto) 80.5 H, Lymph % (Auto) 12.8 L, [place] % (Auto) 6.1, Eos % (Auto) 0.0, Baso % (Auto) 0.2, Absolute Neuts (auto) 3.7, Absolute Lymphs (auto) 0.59 L, Nucleated RBC % 0, Differential Comment SCANNED, Platelet Estimate ADEQUATE, Microcytosis 1+ 05/14/20 18:43: Sodium 139, Potassium 3.9, Chloride 105, Carbon Dioxide 29.0, Anion Gap 5, BUN 12, Creatinine 1.15 H, Estim Creat Clear Calc 61.05, Est GFR (MDRD) Af Amer 63, Est GFR (MDRD) Non-Af 52 L, BUN/Creatinine Ratio 10.4, Glucose 119 H, Calcium 8.5, Total Bilirubin 0.70, AST 34, ALT 28, Alkaline Phosphatase 66, Total Protein 8.2, Albumin 3.1 L, Globulin 5.1 H, Albumin/Globulin Ratio 0.6 L 05/14/20 18:43: Lactic Acid 1.7 05/14/20 18:43: Troponin I < 0.015 05/14/20 18:43: B-Natriuretic Peptide 23.2 05/14/20 18:43: Ferritin 234, Triglycerides 158 05/14/20 20:35: COVID-19 (MAREK) Not Detected 05/14/20 22:38: Procalcitonin 0.11 H 05/15/20 00:44: POC Glucose 117 H 05/15/20 05:50: WBC 4.3 L, RBC 5.68 H, Hgb 13.8, Hct 44.6, MCV 78.5 L, MCH 24.3 L, MCHC 30.9 L, RDW Std Deviation 43.0, RDW Coeff of Nikhil 14.9 H, Plt Count 190, MPV 10.4, Immature Gran % (Auto) 0.200, Neut % (Auto) 84.2 H, Lymph % (Auto) 11.7 L, [place] % (Auto) 3.7, Eos % (Auto) 0.0, Baso % (Auto) 0.2, Absolute Neuts (auto) 3.6, Absolute Lymphs (auto) 0.50 L, Nucleated RBC % 0, Diff Path Review Reviewed 05/15/20 05:50: Sodium 135 L, Potassium 3.7, Chloride 102, Carbon Dioxide 24.0, Anion Gap 9, BUN 10, Creatinine 1.16 H, Estim Creat Clear Calc 59.81, Est GFR (MDRD) Af Amer 62, Est GFR (MDRD) Non-Af 51 L, BUN/Creatinine Ratio 8.6 L, Glucose 143 H, Calcium 8.9, Total Bilirubin 0.50, AST 25, ALT 24, Alkaline Phosphatase 68, Total Protein 8.5 H, Albumin 3.1 L, Globulin 5.4 H, Albumin/Globulin Ratio 0.6 L, TSH 2.28 05/15/20 06:43: POC Glucose 159 H 05/15/20 06:50: MRSA (PCR) Negative 05/15/20 11:37: POC Glucose 149 H 05/15/20 15:45: PT Pending, INR Pending Current Medications Acetaminophen (Acetaminophen 325 Mg Tablet) 650 mg PO Q6H PRN PRN PRN Reason: Pain Score 1-10/Temp > 100.7 F Albuterol Sulfate (Albuterol Ih 8.5 Gm (Proair) Inhaler (200 Puffs)) 2 puff INHALATION Q4H PRN PRN PRN Reason: SOB/WHEEZING Last Admin: 05/15/20 00:26 Dose: 2 puff Documented by: Amlodipine Besylate (Amlodipine 5 Mg Tablet) 5 mg PO DAILY [facility] Last Admin: 05/15/20 08:52 Dose: 5 mg Documented by: Dexamethasone (Dexamethasone 4 Mg Tablet) 6 mg PO DAILY [facility] Last Admin: 05/15/20 08:51 Dose: 6 mg Documented by: Dextrose (Dextrose 50%-Water 25 Gm/50 Ml Disp.Syrin) 0 gm IV X1 PRN; Protocol PRN Reason: Hypoglycemia Enoxaparin Sodium (Enoxaparin 150 Mg/Ml Syringe) 150 mg SC Q12 [facility] Last Admin: 05/15/20 09:00 Dose: 150 mg Documented by: Fluticasone Propionate (Fluticasone 0.05% 1 [place] Nasal.Sry) 1 spray NASAL BID [facility] Last Admin: 05/15/20 08:51 Dose: 1 spray Documented by: Glucagon (Glucagon 1 Mg/Ml Syringe) 1 mg IM .X1 PRN PRN Reason: Hypoglycemia Guaifenesin (Guaifenesin 1,200 Mg Tablet) 1,200 mg PO BID [facility] Last Admin: 05/15/20 08:52 Dose: 1,200 mg Documented by: Hydrochlorothiazide (Hydrochlorothiazide 25 Mg Tablet) 25 mg PO BID [facility] Last Admin: 05/15/20 08:52 Dose: 25 mg Documented by: Remdesivir 100 mg/ Sodium (Chloride) 250 mls @ 125 mls/hr IV DAILY@2200 RUBI Stop: 05/18/20 23:59 Insulin Human Lispro (Insulin Lispro 100 Unit/Ml Insuln.Pen) 0 unit SC [facility]; Protocol Last Admin: 05/15/20 11:38 Dose: Not Given Documented by: Melatonin (Melatonin 3 Mg Tablet) 3 mg PO QHS PRN PRN PRN Reason: INSOMNIA Ondansetron HCl (Ondansetron 4 Mg/2 Ml Vial) 4 mg IV Q8H PRN PRN PRN Reason: NAUSEA/VOMITING Ondansetron HCl (Ondansetron 4 Mg/2 Ml Vial) 4 mg IV Q8H PRN PRN PRN Reason: Nausea Senna/Docusate Sodium (Senna/Docusate Sodium 1 Tablet) 2 tablet PO BID PRN PRN PRN Reason: Constipation Sodium Chloride (0.9% Saline Lock 10 Ml Syringe) 10 - 40 ml IV UD PRN PRN Reason: SALINE FLUSH Throat Lozenges (Benzocaine/Menthol 1 Lozenge) 1 lozenge MUCOUS MEM Q2H PRN PRN PRN Reason: SORE THROAT Clinical Impression(s) from Imaging Studies Chest X-Ray 05/14/20 18:54 IMPRESSION: Lingular opacity suspicious for pneumonia. Consider typical and atypical etiologies. Mild right hilar adenopathy. CT of the chest is advised for further evaluation. Electronically Signed: Zoila Davenport MD at 19:26 EST Tel , Service support , Chest CT 05/14/20 19:30 IMPRESSION: 1. Mild pulmonary emboli, greatest in the right middle and lower lobes. 2. Bilateral groundglass opacities consistent with pneumonia, including possible Covid pneumonia. 3. Moderate mediastinal and bilateral hilar adenopathy, not typical for infectious/reactive adenopathy. Consider underlying malignancy/lymphoma. 4. Hepatic steatosis. Electronically Signed: Zoila Davenport MD at 20:57 EST Tel , Service support , ADDENDUM: 12/20/20 2146 IMPRESSION: 1. Mild pulmonary emboli, greatest in the right middle and lower lobes. 2. Bilateral groundglass opacities consistent with pneumonia, including possible Covid pneumonia. 3. Moderate mediastinal and bilateral hilar adenopathy, not typical for infectious/reactive adenopathy. Consider underlying malignancy/lymphoma. 4. Hepatic steatosis. N.B. : The above information has been verbally conveyed by Zoila Davenport MD to Steven Stacy MD, on 05/14/2020 21:39:51 (ET). Electronically Signed: Zoila Davenport MD at 20:57 EST Tel , Service support , Assessment/Plan All Active Problems (Last Reviewed 06/29/19 @ 16:14 by Shikha Castro) Atrial fibrillation (Acute) Pneumonia (Acute) Pulmonary embolism (Acute) Acute hypoxemic respiratory failure (Acute) Sinusitis, acute (Acute) RECOMMENDATIONS: 1. Continue systemic anticoagulation 2. Consider echocardiogram 3. Remdesivir/Decadron per infectious disease 4. Consider outpatient evaluation for obstructive sleep apnea 5. Okay to discontinue antibiotics from my perspective 6. Walking oximetry prior to discharge IMPRESSIONS: 1. Acute hypoxic respiratory failure secondary to pulmonary embolus plus or minus COVID-19 Unclear etiology. Pulmonary embolism would account for presenting hypoxemia, especially with ambulation as patient likely has elevated pulmonary artery pressures. CT scan does show some groundglass opacities that can be seen in volume overload, but BNP was relatively normal. Patient did have COVID-19 exposure, but testing was reportedly negative. Patient is to be evaluated by infectious disease. Likely okay to discontinue antibiotics from my perspective. Patient may have had COVID-19 3 weeks ago leading to a hypercoagulable state, but anticoagulation would be indicated for 3 to 6 months at this time. Patient should have an echocardiogram to evaluate pulmonary artery pressures and RV strain. 2. New onset atrial fibrillation Medical suspicion for atrial dilation secondary to acute PE leading to current findings. Patient is currently rate controlled. Anticoagulation has been initiated. Would recommend echocardiogram. Troponins are not suggestive of an acute myocardial event. 3. Mediastinal lymphadenopathy Unclear etiology. If patient were to test positive for COVID-19, reactive lymphadenopathy would be suspected. However, lymphoma or sarcoidosis could also be a consideration. If mediastinal lymphadenopathy last for more than 3 months, bronchoscopy with endobronchial ultrasound may be indicated. 4. Probable ANJU untreated/hypertension/morbid obesity Complicates care, management, recovery and prognosis. Patient was recommended weight loss, but would benefit from outpatient sleep evaluation. Inpatient E&M: 22116 Init Hosp L3
[2020-05-15 16:20] LABS: International Normalized Ratio 1.1; Prothrombin Time (Protime)PT. 13.9 SECONDS (11.7-14.9)
[2020-05-15 17:37] LABS: Bedside Glucose 169 mg/dL (70-110)
[2020-05-15 23:21] LABS: Bedside Glucose 170 mg/dL (70-110)
[2020-05-16] VITALS (7 sets, daily range): BP systolic 127–137; BP diastolic 69–77; PULSE 58–75; RESP 16–18; TEMP 36.4–36.9; O2SAT 91–99
[2020-05-16 06:07] LABS: Absolute Lymphocyte Count 0.66 X10^3/uL (0.83-4.51); Absolute Neutrophil Count 3.7 X10^3/uL (2.0-7.7); Basophil# 0.01 X10^3/uL; Basophil% 0.2 % (0-1); Hematocrit 43.4 % (37-47); Hemoglobin 13.5 g/dL (12.0-15.0); Lymphocyte # 0.66 X10^3/ul (4.0); Lymphocyte % 13.6 % (19-41); Mean Corp Hgb Conc 31.1 g/dL (32-36); Mean Corpuscular Hgb 24.6 pg (27.0-32.0); Mean Corpuscular Volume 79.1 fL (81-99); Mean Platelet Vol. 11.3 fl (6.2-12.0); Monocyte# 0.49 X10^3/uL; Monocyte% 10.1 % (0-10); NRBC Flagged by Analyzer 0 % (0-5); Neutrophil # 3.66 X10^3/uL (2.7-7.7); Neutrophil % 75.7 % (47-70); Platelet Count 224 K/mm3 (150-450); RBC Distribution Width CV 14.9 % (11.6-14.6); RBC Distribution Width SD 42.7 fl (35.1-43.9); Red Blood Count 5.49 M/mm3 (4.2-5.4); White Blood Count 4.8 K/mm3 (4.4-11.0)
[2020-05-16 06:16] LABS: International Normalized Ratio 1.2; Prothrombin Time (Protime)PT. 14.4 SECONDS (11.7-14.9)
[2020-05-16 06:34] LABS: AST(SGOT) 21 U/L (15-37); Alanine Aminotransfer ALT/SGPT 27 U/L (13-56); Albumin, Serum 3.2 g/dL (3.2-5.0); Alkaline Phosphatase 63 U/L (45-117); Anion Gap 5 (5-15); BUN 16 mg/dL (7-18); BUN/Creat Ratio 15.7 RATIO (10-20); Bilirubin, Direct 0.17 mg/dL (0.00-0.30); Calcium,Total 8.8 mg/dL (8.5-10.1); Chloride 106 mmol/L (98-107); Creatinine, Serum 1.02 mg/dL (0.55-1.02); EST Glomerular Filtration Rate 59 mL/min (>60); Est Glom Filt Rate - Afr Amer 72 mL/min (>60); Estimated Creatinine Clearance 68.01 ml/min; Globulin 4.5 g/dL (2.2-4.2); Glucose 127 mg/dL (74-106); LDH 368 U/L (84-246); Potassium 3.8 mmol/L (3.5-5.1); Protein, Total 7.7 g/dL (6.4-8.2); Sodium Level 139 mmol/L (136-145)
[2020-05-16 06:41] LABS: Bedside Glucose 134 mg/dL (70-110)
[2020-05-16 07:02] LABS: SARS-COV-2 TOTAL ABS Reactive (Nonreactive)
[2020-05-16] MEDS: Fluticasone 0.05% 1 SPRAY NASAL.SRY NASAL (08:53)
[2020-05-16] MEDS: dexAMETHasone 4 MG Tablet 6 MG PO (08:53)
[2020-05-16] MEDS: guaiFENesin 1,200 MG Tablet 1200 MG PO (08:54)
[2020-05-16] MEDS: hydroCHLOROthiazide 25 MG Tablet PO (08:54)
[2020-05-16] MEDS: amLODIPine 5 MG Tablet PO (08:54)
[2020-05-16] MEDS: Enoxaparin 150 MG/ML Syringe SC (08:55)
[2020-05-16] MEDS: Insulin Lispro 100 UNIT/ML INSULN.PEN SC (11:25)
--- NOTE | 2020-05-16 14:23 | CASEMGMT ---
Addendum entered by Soraida Barth 05/16/20 14:59: Pt is updated on Lovenox morel at this time and states she is ok with morel. Pt does not qualify for home oxygen at this time. Pt voices no further questions/concerns/needs at this time. Fern OTT CM Original Note: Pt to be sent home on Lovenox at discharge and [facility]. Call to [facility] and per tech, pt's co-pay is $196.[address] Ba aware. Fern OTT CM
--- NOTE | 2020-05-16 14:50 | PCM.PN.PUL ---
Patient Problems: Active and Suspected Problems (Last Reviewed 06/29/19 @ 16:14 by Shikha Castro) COVID-19 (Suspected) Atrial fibrillation (Acute) Pneumonia (Acute) Pulmonary embolism (Acute) Acute hypoxemic respiratory failure (Acute) Sinusitis, acute (Acute) Subjective: Patient did well overnight. No acute issues were reported. Oxygenation has continued to improve. No bleeding complications have been reported. Patient continues to have a nonproductive cough. - Physical Exam Vitals/I&O's: Vital Signs Temp Pulse Resp BP Pulse Ox 36.9 C 66 18 127/69 H 93 05/16/20 08:47 05/16/20 08:47 05/16/20 08:47 05/16/20 08:47 05/16/20 10:42 Oxygen Flow Rate (L/min) [ 0 AMBULATING on Room Air] Oxygen Flow Rate (L/min) [At 0 REST on Room Air] Oxygen Flow Rate (L/min) 2 Oxygen Delivery Method Room Air Weight: 158.893 kg Body Mass Index (BMI) 48.8 Intake and Output for Last 24 Hours 05/14/20 05/15/20 05/16/20 23:59 23:59 23:59 Intake Total 150 / 150 772 / 1272 1000 / 1000 Output Total 600 / 600 Balance 150 / 150 172 / 672 1000 / 1000 General: Alert, Oriented x3, Cooperative, No apparent distress, Well developed, Well nourished, - - Morbidly obese. Speaking in full sentences. HEENT: Atraumatic, PERRLA, EOMI, Normocephalic, - - No scleral icterus or injection noted Oral: Moist Mucosa, No Gingival or Mucosal Lesions/ Ulcerations, - - Crowded posterior pharynx Neck: Supple, No Nodes, Trachea Midline, - - JVD difficult to assess secondary to body habitus Lungs: No rhonchi, No wheeze, No rales, Diminished Cardiovascular: Normal S1, Normal S2, No murmurs, Bradycardic, No rub noted, No Gallop Abdomen: Bowel Sounds Present, Soft, Non Tender, Non-Distended, Obese Extremities: No clubbing, No cyanosis, Edema - Trace lower extremity Skin: - - No change compared to previous. No significant ecchymosis appreciated. Musculoskeletal: No Tenderness to Palpation of Joints or Extremities Lymphatic: No Cervical, Supraclavicular, or Inguinal Adenopathy Neurological: Cranial nerves II-XII grossly intact, Neuro grossly intact, Motor Exam 5/5 strength throughout Psych/Mental Status: Alert and oriented to time, place, person, mood and affect Microbiology Past 72 Hours 05/15/20 05:45 Mucosa - Nasopharyngeal Respiratory Panel (PCR) - Final 05/15/20 01:45 Urine, Clean Catch Legionella Antigen - Final 05/15/20 01:45 Urine, Clean Catch Streptococcus pneumoniae Antigen (M - Final 05/14/20 18:50 Mucosa - Nose SARS-CoV-2 Antigen (Rapid) - Final Laboratory Results 05/15/20 05:50: Diff Path Review Reviewed 05/15/20 15:45: PT 13.9, INR 1.1 05/15/20 17:04: POC Glucose 169 H 05/15/20 21:20: POC Glucose 170 H 05/16/20 05:45: WBC 4.8, RBC 5.49 H, Hgb 13.5, Hct 43.4, MCV 79.1 L, MCH 24.6 L, MCHC 31.1 L, RDW Std Deviation 42.7, RDW Coeff of Nikhil 14.9 H, Plt Count 224, MPV 11.3, Immature Gran % (Auto) 0.400, Neut % (Auto) 75.7 H, Lymph % (Auto) 13.6 L, [place] % (Auto) 10.1 H, Eos % (Auto) 0.0, Baso % (Auto) 0.2, Absolute Neuts (auto) 3.7, Absolute Lymphs (auto) 0.66 L, Nucleated RBC % 0 05/16/20 05:45: PT 14.4, INR 1.2 05/16/20 05:45: Sodium 139, Potassium 3.8, Chloride 106, Carbon Dioxide 28.0, Anion Gap 5, BUN 16, Creatinine 1.02, Estim Creat Clear Calc 68.01, Est GFR (MDRD) Af Amer 72, Est GFR (MDRD) Non-Af 59 L, BUN/Creatinine Ratio 15.7, Glucose 127 H, Calcium 8.8, Total Bilirubin 0.40, Direct Bilirubin 0.17, AST 21, ALT 27, Alkaline Phosphatase 63, Lactate Dehydrogenase 368 H, Total Protein 7.7, Albumin 3.2, Globulin 4.5 H 05/16/20 05:45: SARS Serology Reactive H 05/16/20 06:30: POC Glucose 134 H Current Medications Acetaminophen (Acetaminophen 325 Mg Tablet) 650 mg PO Q6H PRN PRN PRN Reason: Pain Score 1-10/Temp > 100.7 F Albuterol Sulfate (Albuterol Ih 8.5 Gm (Proair) Inhaler (200 Puffs)) 2 puff INHALATION Q4H PRN PRN PRN Reason: SOB/WHEEZING Last Admin: 05/15/20 00:26 Dose: 2 puff Documented by: Amlodipine Besylate (Amlodipine 5 Mg Tablet) 5 mg PO DAILY [facility] Last Admin: 05/16/20 08:54 Dose: 5 mg Documented by: Dexamethasone (Dexamethasone 4 Mg Tablet) 6 mg PO DAILY [facility] Last Admin: 05/16/20 08:53 Dose: 6 mg Documented by: Dextrose (Dextrose 50%-Water 25 Gm/50 Ml Disp.Syrin) 0 gm IV X1 PRN; Protocol PRN Reason: Hypoglycemia Enoxaparin Sodium (Enoxaparin 150 Mg/Ml Syringe) 150 mg SC Q12 [facility] Last Admin: 05/16/20 08:55 Dose: 150 mg Documented by: Fluticasone Propionate (Fluticasone 0.05% 1 [place] Nasal.Sry) 1 spray NASAL BID [facility] Last Admin: 05/16/20 08:53 Dose: 1 spray Documented by: Glucagon (Glucagon 1 Mg/Ml Syringe) 1 mg IM .X1 PRN PRN Reason: Hypoglycemia Guaifenesin (Guaifenesin 1,200 Mg Tablet) 1,200 mg PO BID [facility] Last Admin: 05/16/20 08:54 Dose: 1,200 mg Documented by: Hydrochlorothiazide (Hydrochlorothiazide 25 Mg Tablet) 25 mg PO BID [facility] Last Admin: 05/16/20 08:54 Dose: 25 mg Documented by: Insulin Human Lispro (Insulin Lispro 100 Unit/Ml Insuln.Pen) 0 unit SC [facility]; Protocol Last Admin: 05/16/20 11:25 Dose: 2 units Documented by: Melatonin (Melatonin 3 Mg Tablet) 3 mg PO QHS PRN PRN PRN Reason: INSOMNIA Ondansetron HCl (Ondansetron 4 Mg/2 Ml Vial) 4 mg IV Q8H PRN PRN PRN Reason: NAUSEA/VOMITING Ondansetron HCl (Ondansetron 4 Mg/2 Ml Vial) 4 mg IV Q8H PRN PRN PRN Reason: Nausea Senna/Docusate Sodium (Senna/Docusate Sodium 1 Tablet) 2 tablet PO BID PRN PRN PRN Reason: Constipation Sodium Chloride (0.9% Saline Lock 10 Ml Syringe) 10 - 40 ml IV UD PRN PRN Reason: SALINE FLUSH Throat Lozenges (Benzocaine/Menthol 1 Lozenge) 1 lozenge MUCOUS MEM Q2H PRN PRN PRN Reason: SORE THROAT Medical Necessity - Tobacco Use Smoking Status: Never smoker Tobacco Use: Non-smoker Assessment/Plan All Active Problems (Last Reviewed 06/29/19 @ 16:14 by Shikha Castro) Atrial fibrillation (Acute) Pneumonia (Acute) Pulmonary embolism (Acute) Acute hypoxemic respiratory failure (Acute) Sinusitis, acute (Acute) RECOMMENDATIONS: 1. Continue systemic anticoagulation 2. Appreciate echocardiogram. This likely does not need to be repeated 3. Discontinue remdesivir/Decadron in my opinion 4. Consider outpatient evaluation for obstructive sleep apnea 5. Walking oximetry prior to discharge 6. Repeat CT chest with contrast in 3 months to evaluate mediastinal lymphadenopathy IMPRESSIONS: 1. Acute hypoxic respiratory failure secondary to pulmonary embolus plus or minus COVID-19 Unclear etiology. Pulmonary embolism would account for presenting hypoxemia, especially with ambulation as patient likely has elevated pulmonary artery pressures. CT scan does show some groundglass opacities that can be seen in volume overload, but BNP was relatively normal. Patient did have COVID-19 exposure, but testing was reportedly negative. Presence of COVID-19 antibodies would be suggestive of a protracted course. Groundglass opacities may be related to resolution from previous infection. This could also explain the mediastinal lymphadenopathy. Patient has responded well to anticoagulation. Anticipate 3 to 6 months of anticoagulation on discharge from a PE perspective, but this may be extended given A. fib development. 2. New onset atrial fibrillation Medical suspicion for atrial dilation secondary to acute PE leading to current findings. Patient is currently rate controlled. Anticoagulation has been initiated. Would recommend echocardiogram. Troponins are not suggestive of an acute myocardial event. 3. Mediastinal lymphadenopathy Unclear etiology. Given positive antibodies for COVID-19, reactive lymphadenopathy is suspected. However, lymphoma or sarcoidosis could also be a consideration. If mediastinal lymphadenopathy last for more than 3 months, bronchoscopy with endobronchial ultrasound may be indicated. 4. Probable ANJU untreated/hypertension/morbid obesity Complicates care, management, recovery and prognosis. Patient was recommended weight loss, but would benefit from outpatient sleep evaluation. Inpatient E&M: 74934 Subs Hosp L2
--- NOTE | 2020-05-16 15:54 | PCM.DC ---
- Discharge Diagnoses Current Active Problems: Current Active and Chronic Problems (Last Reviewed 06/29/19 @ 16:14 by Shikha Castro) Atrial fibrillation (Acute) Pneumonia (Acute) Pulmonary embolism (Acute) Acute hypoxemic respiratory failure (Acute) Sinusitis, acute (Acute) You will use the following diet at home:: Cardiac Your food should be the consistency of: Regular Your liquids should be the consistency of: Regular/Thin Discharge Activity: Return to Normal Activity Allergies/Adverse Reactions: Allergies pollen extracts Allergy (Mild, Verified 05/14/20 22:08) Shortness of breath Medications to take at Discharge Albuterol Sulfate [Albuterol Sulfate HFA] 1 puff INHALATION PRN PRN 05/14/20 Amlodipine [Norvasc] 5 mg PO DAILY 05/14/20 Hydrochlorothiazide [Hctz] 25 mg PO DAILY 05/14/20 metFORMIN HCl [Glucophage] 500 mg PO BIDCM 05/14/20 Enoxaparin [Lovenox] 150 mg SC Q12 7 Days syringe 05/16/20 Enoxaparin [Lovenox] 150 mg SC Q12@0600,1800 7 Days #14 syringe 05/16/20 Warfarin Sodium 10 mg PO DAILY 7 Days #7 tab 05/16/20 The following prescriptions were given: Enoxaparin [Lovenox] 150 mg SC Q12 7 Days syringe Enoxaparin [Lovenox] 150 mg SC Q12@0600,1800 7 Days #14 syringe Transmission Status: Received by [facility] Warfarin Sodium 10 mg PO DAILY 7 Days #7 tab Transmission Status: Received by [facility] Primary Care Physician: Liang Jimenez MD [NON-STAFF] - Test Results: Test results from this visit will be discussed in further detail at your follow-up appointment, if applicable. Please Follow Up With: Sanket Gay DO When: 1-2 weeks and will need daily INRs until therapeutic x 48 hrs on coumadin
[2020-05-16 16:10] LABS: Bedside Glucose 197 mg/dL (70-110)
--- NOTE | 2020-05-16 17:05 | PCM.DC.SUM ---
Discharge Date and Diagnosis - Problem List Patient Problems: Active and Suspected Problems (Last Reviewed 06/29/19 @ 16:14 by Shikha Castro) COVID-19 (Suspected) Atrial fibrillation (Acute) Pneumonia (Acute) Pulmonary embolism (Acute) Acute hypoxemic respiratory failure (Acute) Sinusitis, acute (Acute) Date of Admission: 05/14/20 Date of Discharge: 05/16/20 - Primary Discharge Diagnosis Acute Problems: Active Problems (Last Reviewed 06/29/19 @ 16:14 by Shikha Castro) Atrial fibrillation (Acute) Pneumonia (Acute) Pulmonary embolism (Acute) Acute hypoxemic respiratory failure (Acute) Sinusitis, acute (Acute) Suspected Problems: Suspected Problems (Last Reviewed 06/29/19 @ 16:14 by Shikha Castro) COVID-19 (Suspected) Hospital Course and Treatment Imaging Results: STUDY: CT CHEST WITH CONTRAST REASON FOR EXAM: Female, 54 years old. SOB/ABN CXR RADIATION DOSAGE (If Supplied By Facility): CTDIvol = ( 16.72 ) mGy, DLP = ( 766.92 ) mGycm TECHNIQUE: Transaxial imaging was performed following intravenous administration of IV 100mL Isovue-370. Individualized dose optimization techniques were used for this CT. COMPARISON: None. FINDINGS: The heart and pericardium are normal. The aorta is normal in caliber. No aneurysm or dissection. Subsegmental emboli in the right middle and lower lobe. Subsegmental emboli in the right upper lobe. There is moderate mediastinal and bilateral hilar adenopathy, greater than expected for reactive change. Largest right paratracheal node measures 2 x 2.6 cm. Confluent right hilar adenopathy measures up to 4.4 x 2.4 cm. Left hilar adenopathy measures up to 1.6 cm in short axis. Mild prevascular adenopathy. There is no pleural effusion. Moderate groundglass opacity in the lingula and left lower lobe. Mild groundglass opacity in the right upper and right lower lobes. Distribution is predominantly peripheral on the right. Diffuse fatty infiltration of the liver. There is no osseous abnormality. 05/14/202056 Date cc: Dr. Steven Nazario MD; Dr. Sanket Gay, DO ~* Signed ADDENDUM by Dr. Zoila Davenport MD on 05/14/[address]/Chest WITH Contrast IMPRESSION: 1. Mild pulmonary emboli, greatest in the right middle and lower lobes. 2. Bilateral groundglass opacities consistent with pneumonia, including possible Covid pneumonia. 3. Moderate mediastinal and bilateral hilar adenopathy, not typical for infectious/reactive adenopathy. Consider underlying malignancy/lymphoma. 4. Hepatic steatosis. Reason For Study: Afib/Flutter Procedure This was a 2D Doppler, Color Flow transthoracic echocardiogram. Technically difficult study due to patient body habitus. Patient refused to lay supine or on her left side. When told it would affect image quality she said ok. Patient was then scanned sitting upright in the bed. Contrast injection given. The study was technically difficult. Contrast injection was performed. Exam performed portable in patient room. The exam was abbreviated due to the COVID 19 protocol. Left Ventricle Mild concentric left ventricular hypertrophy. Based upon the 2D echocardiographic and contrast enhanced images obtained there appears to be grossly normal left ventricular size, wall motion, and systolic function. The estimated ejection fraction is 70 %. Unable to assess diastolic dysfunction. Right Ventricle Based upon the 2D echocardiographic and contrast enhanced images obtained there appears to be grossly normal right ventricular size and systolic function. Atria Normal left atrium. Normal right atrium. No doppler evidence for ASD. Mitral Valve There is no mitral annular calcification. Normal mitral valve. Tricuspid Valve The tricuspid valve is not well visualized. Aortic Valve Trisinus/trileaflet aortic valve. Normal aortic valve. Pulmonic Valve The pulmonic valve is not well visualized. Great Vessels The aortic root is not well visualized. Pericardium/Pleural No pericardial effusion. Medication Diluted definity 3ml given slow IV push to enhance endocardial definition. MMode/2D Measurements & Calculations LVIDd: 4.3 cm IVSd: 1.4 cm LVIDs: 2.7 cm LVPWd: 1.3 cm FS: 37.3 % Interpretation Summary The study was technically difficult. Contrast injection was performed. Based upon the 2D echocardiographic and contrast enhanced images obtained there appears to be grossly normal left ventricular size, wall motion, and systolic function. The estimated ejection fraction is 70 %. Mild concentric left ventricular hypertrophy. Unable to assess diastolic dysfunction. ID Pulm Operations: None Procedures: 2-D Echocardiogram Summary of Care Provided: Mrs Preston is a 55 year old F who presented to the ED on 05/14 with SOB. She had URI sx and a cough for about 3-4 weeks but had become more SOB prior to presentation. She was given a Zpak with no sx resolution. Upon presentation she reported that her had recent had a + COVID test. Sats in the ED were 86-91% on RA and she was found to be in new onset a-fib with RVR, which resolved by the am of the and did not reoccur. A CTA was done in the ED and had diffuse B patchy ground glass changes, moderate mediastinal LAD, PE in the R ML and LL and Hepatic steatosis. She was admitted, started on Remdesivir and decadron and Lovenox. Her ECHO showed no RV strain and EF was WNL. Her COVID PCR was also negative but her serology was positive and she was suspected to have remote COVID with new PE that tipped her into respiratory distress. Becasue of her BMI being > 40 she was continued on Lovenox 150mg BID and start on warfarin. Her INR at d/c was 1.2 and she had 1 days worth of 10 mg of coumdin. She has an order for daily INR and will f/u at [facility] and her PCP Dr. Gay for direction for her warfarin dosing. She will need 2 consecutive therapeutic INR's prior to d/c of Lovenox and a weeks supply was written for at d/c. The decadron and Remdesivir were discontinued. She was able to be weaned to RA with sats > 92% at rest and with ambulation. She will need a repeat CT of her chest for the LAD in - and if still present consider further w/u for malignancy vs reactive nodes 2/2 recent COVID infection. Pt is also in need of a PSG for AJNU r/o. Discharge Dx Acute Respiratory Failure 2/2 Acute PE PE Remote COVID 19 infection Mediastinal LAD PAF-resolved CKD stage 2 HTN Hyponatremia-resolved MO Suspect ANJU Discharge time > 35' Patient Problems: Active and Suspected Problems (Last Reviewed 06/29/19 @ 16:14 by Shikha Castro) COVID-19 (Suspected) Atrial fibrillation (Acute) Pneumonia (Acute) Pulmonary embolism (Acute) Acute hypoxemic respiratory failure (Acute) Sinusitis, acute (Acute) - Physical Exam Vitals/I&O's: Vital Signs Temp Pulse Resp BP Pulse Ox 98.3 F 71 16 137/71 H 93 05/16/20 15:48 05/16/20 15:48 05/16/20 15:48 05/16/20 15:48 05/16/20 15:48 Oxygen Flow Rate (L/min) [ 0 AMBULATING on Room Air] Oxygen Flow Rate (L/min) [At 0 REST on Room Air] Oxygen Flow Rate (L/min) 2 Oxygen Delivery Method Room Air Weight: 158.893 kg Body Mass Index (BMI) 48.8 Intake and Output for Last 24 Hours 05/14/20 05/15/20 05/16/20 23:59 23:59 23:59 Intake Total 150 / 150 772 / 1272 1000 / 1000 Output Total 600 / 600 Balance 150 / 150 172 / 672 1000 / 1000 General: Alert, Oriented x3, Cooperative, No apparent distress, Well developed, Well nourished, - - Middle aged MO WF sitting up in chair appears comfortable on RA HEENT: Atraumatic, Normocephalic Oral: Moist Mucosa Neck: Supple, Trachea Midline Lungs: Clear to auscultation, No rhonchi, No wheeze, No rales, Diminished - diffusely Cardiovascular: Regular rate, Regular Rhythm, Normal S1, Normal S2, No murmurs, No Ectopic Activity, No rub noted Abdomen: Bowel Sounds Present, Soft, Non Tender, Non-Distended, Obese Extremities: No clubbing, No cyanosis, Capillary Refill Less than 3 Seconds, Edema - trace B LE, Peripheral Pulses Normal Skin: No rashes, No breakdown Musculoskeletal: No Tenderness to Palpation of Joints or Extremities, No Muscle Wasting Neurological: Cranial nerves II-XII grossly intact, Neuro grossly intact Psych/Mental Status: Normal Affect, Appropriate Microbiology Past 72 Hours 05/15/20 05:45 Mucosa - Nasopharyngeal Respiratory Panel (PCR) - Final 05/15/20 01:45 Urine, Clean Catch Legionella Antigen - Final 05/15/20 01:45 Urine, Clean Catch Streptococcus pneumoniae Antigen (M - Final 05/14/20 18:50 Mucosa - Nose SARS-CoV-2 Antigen (Rapid) - Final Laboratory Results 05/15/20 17:04: POC Glucose 169 H 05/15/20 21:20: POC Glucose 170 H 05/16/20 05:45: WBC 4.8, RBC 5.49 H, Hgb 13.5, Hct 43.4, MCV 79.1 L, MCH 24.6 L, MCHC 31.1 L, RDW Std Deviation 42.7, RDW Coeff of Nikhil 14.9 H, Plt Count 224, MPV 11.3, Immature Gran % (Auto) 0.400, Neut % (Auto) 75.7 H, Lymph % (Auto) 13.6 L, [place] % (Auto) 10.1 H, Eos % (Auto) 0.0, Baso % (Auto) 0.2, Absolute Neuts (auto) 3.7, Absolute Lymphs (auto) 0.66 L, Nucleated RBC % 0 05/16/20 05:45: PT 14.4, INR 1.2 05/16/20 05:45: Sodium 139, Potassium 3.8, Chloride 106, Carbon Dioxide 28.0, Anion Gap 5, BUN 16, Creatinine 1.02, Estim Creat Clear Calc 68.01, Est GFR (MDRD) Af Amer 72, Est GFR (MDRD) Non-Af 59 L, BUN/Creatinine Ratio 15.7, Glucose 127 H, Calcium 8.8, Total Bilirubin 0.40, Direct Bilirubin 0.17, AST 21, ALT 27, Alkaline Phosphatase 63, Lactate Dehydrogenase 368 H, Total Protein 7.7, Albumin 3.2, Globulin 4.5 H 05/16/20 05:45: SARS Serology Reactive H 05/16/20 06:30: POC Glucose 134 H 05/16/20 11:23: POC Glucose 197 H Current Medications Acetaminophen (Acetaminophen 325 Mg Tablet) 650 mg PO Q6H PRN PRN PRN Reason: Pain Score 1-10/Temp > 100.7 F Albuterol Sulfate (Albuterol Ih 8.5 Gm (Proair) Inhaler (200 Puffs)) 2 puff INHALATION Q4H PRN PRN PRN Reason: SOB/WHEEZING Last Admin: 05/15/20 00:26 Dose: 2 puff Documented by: Amlodipine Besylate (Amlodipine 5 Mg Tablet) 5 mg PO DAILY [facility] Last Admin: 05/16/20 08:54 Dose: 5 mg Documented by: Dexamethasone (Dexamethasone 4 Mg Tablet) 6 mg PO DAILY [facility] Last Admin: 05/16/20 08:53 Dose: 6 mg Documented by: Dextrose (Dextrose 50%-Water 25 Gm/50 Ml Disp.Syrin) 0 gm IV X1 PRN; Protocol PRN Reason: Hypoglycemia Enoxaparin Sodium (Enoxaparin 150 Mg/Ml Syringe) 150 mg SC Q12 [facility] Last Admin: 05/16/20 08:55 Dose: 150 mg Documented by: Fluticasone Propionate (Fluticasone 0.05% 1 [place] Nasal.Sry) 1 spray NASAL BID [facility] Last Admin: 05/16/20 08:53 Dose: 1 spray Documented by: Glucagon (Glucagon 1 Mg/Ml Syringe) 1 mg IM .X1 PRN PRN Reason: Hypoglycemia Guaifenesin (Guaifenesin 1,200 Mg Tablet) 1,200 mg PO BID [facility] Last Admin: 05/16/20 08:54 Dose: 1,200 mg Documented by: Hydrochlorothiazide (Hydrochlorothiazide 25 Mg Tablet) 25 mg PO BID [facility] Last Admin: 05/16/20 08:54 Dose: 25 mg Documented by: Insulin Human Lispro (Insulin Lispro 100 Unit/Ml Insuln.Pen) 0 unit SC ACHS [facility]; Protocol Last Admin: 05/16/20 11:25 Dose: 2 units Documented by: Melatonin (Melatonin 3 Mg Tablet) 3 mg PO QHS PRN PRN PRN Reason: INSOMNIA Ondansetron HCl (Ondansetron 4 Mg/2 Ml Vial) 4 mg IV Q8H PRN PRN PRN Reason: NAUSEA/VOMITING Ondansetron HCl (Ondansetron 4 Mg/2 Ml Vial) 4 mg IV Q8H PRN PRN PRN Reason: Nausea Senna/Docusate Sodium (Senna/Docusate Sodium 1 Tablet) 2 tablet PO BID PRN PRN PRN Reason: Constipation Sodium Chloride (0.9% Saline Lock 10 Ml Syringe) 10 - 40 ml IV UD PRN PRN Reason: SALINE FLUSH Throat Lozenges (Benzocaine/Menthol 1 Lozenge) 1 lozenge MUCOUS MEM Q2H PRN PRN PRN Reason: SORE THROAT Discharge Activity: Return to Normal Activity Home Medications: Medications to take at Discharge Albuterol Sulfate [Albuterol Sulfate HFA] 1 puff INHALATION PRN PRN 05/14/20 Amlodipine [Norvasc] 5 mg PO DAILY 05/14/20 Hydrochlorothiazide [Hctz] 25 mg PO DAILY 05/14/20 metFORMIN HCl [Glucophage] 500 mg PO BIDCM 05/14/20 Enoxaparin [Lovenox] 150 mg SC Q12 7 Days syringe 05/16/20 Enoxaparin [Lovenox] 150 mg SC Q12@0600,1800 7 Days #14 syringe 05/16/20 Warfarin Sodium 10 mg PO DAILY 7 Days #7 tab 05/16/20 Following Prescriptions Were Given to Patient: Enoxaparin [Lovenox] 150 mg SC Q12 7 Days syringe Enoxaparin [Lovenox] 150 mg SC Q12@0600,1800 7 Days #14 syringe Transmission Status: Received by [facility] Warfarin Sodium 10 mg PO DAILY 7 Days #7 tab Transmission Status: Received by [facility] Primary Care Physician: Liang Jimenez MD [NON-STAFF] - Please Follow Up With: Sanket Gay DO When: 1-2 weeks and will need daily INRs until therapeutic x 48 hrs on coumadin Medical Necessity - Tobacco Use Smoking Status: Never smoker Tobacco Use: Non-smoker Meaningful Use Info Meaningful Use Diagnoses (Choose all that apply): VTE - VTE Anticoag overlap given w/in hospital stay or rx'd at pa?: Yes Pt receive overlap for 5 days?: Yes Inpatient E&M: [id number] [facility]
--- NOTE | 2020-05-17 15:16 | CASEMGMT ---
NAMRATA PENA Discharge F/U COVID Phone Call Discharge date: 05/16/2020 Call date: 05/17/2020 Call time: [id number] Admission dx: SARS COVID, PE, Afib Pt states has been 'feeling good' since discharge. Pt speaks in full sentences and declines SOB/Fever at this time. Pt states no questions regarding d/c instructions or medications at this time. Pt states is on her way to get her 1st INR drawn at this time and states no trouble getting her Lovenox filled. Pt states has f/u with PCP and plans to keep. Pt states no suggestions for [facility] at this time and states 'Everything was excellent!' Pt voices no further questions/concerns/needs at this time. S[place]en NAMRATA CM
== END 2020-05-16 17:11 | disposition home or self-care (01) | DRG 175 ==
LOC: ED 20:52 → PCU 21:21
PROVIDERS: Internal Medicine Infectious Disease; Admitting Provider Hospitalist; Emergency Provider Emergency Medicine; PCP Family Medicine; Visit Provider Internal Medicine
DX: I26.99 Other pulmonary embolism without acute cor pulmonale (principal); J18.9 Pneumonia, unspecified organism; J96.01 Acute respiratory failure with hypoxia; Z68.42 Body mass index [BMI] 45.0-49.9, adult; I48.91 Unspecified atrial fibrillation; I12.9 Hypertensive chronic kidney disease with stage 1 through stage 4 chronic kidney disease, or unspecified chronic kidney disease; E11.22 Type 2 diabetes mellitus with diabetic chronic kidney disease; N18.2 Chronic kidney disease, stage 2 (mild); R59.0 Localized enlarged lymph nodes; E11.65 Type 2 diabetes mellitus with hyperglycemia; E66.01 Morbid (severe) obesity due to excess calories; K76.0 Fatty (change of) liver, not elsewhere classified; E78.5 Hyperlipidemia, unspecified; G47.33 Obstructive sleep apnea (adult) (pediatric); J01.40 Acute pansinusitis, unspecified; Z79.899 Other long term (current) drug therapy; Z86.19 Personal history of other infectious and parasitic diseases; Z79.84 Long term (current) use of oral hypoglycemic drugs
CPT/HCPCS: 36415; 71045; 71260; 80048; 80053; 80076; 82728; 82962; 83605; 83615; 83880; 84145; 84443; 84478; 84484; 85025; 85610; 86769; 87426; 87449; 87633; 87635; 87641; 93005; 93306; 99285; J7040; J7050; Q9957; Q9967; A4216; C8929; J0696; U0002

== ENCOUNTER → 2021-03-10 | Outpatient (CLI) | payer BC, SELFPAY | END | disposition home or self-care (01) | LOC: LABSPEC 10:07 | PROVIDERS: PCP Family Medicine; Referring Provider Physician Assistant Medical; Visit Provider Physician Assistant Medical | DX: R05.9 Cough, unspecified (principal) | CPT/HCPCS: 87635; U0005; U0003 ==